=== PATIENT | female | born 1945 | race Caucasian/White ===

== ENCOUNTER 2018-05-18 06:28 | Outpatient (CLI) | payer MEDICARE, OTHER | END 2018-05-18 06:29 | disposition critical access hospital (66) | LOC: EMS 06:28 | PROVIDERS: ATTEND Surgery | DX: R41.82 Altered mental status, unspecified (principal) | CPT/HCPCS: A0425; A0429 ==

== ENCOUNTER 2018-05-18 06:54 | Inpatient (IN) | payer MEDICARE, OTHER ==
--- NOTE | 2018-05-18 07:13 | ED Physician Documentation ---
PD HPI ALTERED MENTAL STATUS - Stated complaint Stated Complaint: AMS - Chief complaint Chief Complaint: Neuro - History obtained from History obtained from: Patient, Family, EMS - History of Present Illness Timing - onset: Yesterday Timing - duration: Days (1) Timing - details: Abrupt onset (Her says she started having feeling of fever chills general myalgias nausea and vomiting yesterday. Developed diarrhea overnight. She has been sleepy and tired. She did have some headache. He took her temperature at 102 last evening. Today she is confused and unable to really interact questions normally. There is no focal weakness. She is still awake with eyes open. She has had poor oral intake since yesterday.) Quality / character: Confused, Agitated Associated symptoms: Fever, Headache, NVD, General weakness. No: Stiff neck, Dyspnea, Cough, Urinary sx, Focal weakness, Seizure activity, Syncope Contributing factors: No: Anticoagulated, Diabetic Basline status: Alert and oriented X 3, Ambulatory Treatment ENVIRONMENTAL STUDIES PROFESSOR: Accucheck Similar symptoms before: Has not had sx before Recently seen: Not recently seen Review of Systems Unable to obtain: AMS, Other (info from who is bedside) Constitutional: reports: Fever (for 1 day), Chills, Myalgias, Fatigue Nose: denies: Rhinorrhea / runny nose, Congestion Throat: denies: Sore throat Respiratory: denies: Cough GI: reports: Abdominal Pain (generally, she did not tell him specific pain), Nausea, Vomiting, Diarrhea. denies: Abdominal Swelling Skin: denies: Rash Neurologic: reports: Generalized weakness, Confused, Altered mental status, Headache. denies: Focal weakness, Numbness, Seizure, Head injury Endocrine: denies: Weight loss, Easy bruising / bleeding Immunocompromised: denies: Immunocompromised PD PAST MEDICAL HISTORY - Past Medical History Cardiovascular: None Respiratory: None Neuro: None Endocrine/Autoimmune: None - Present Medications Home Medications: Ambulatory Orders Medication Instructions Recorded Confirmed Levothyroxine [Synthroid] 1 tab PO DAILY 05/18/18 05/18/18 - Allergies Allergies/Adverse Reactions: Allergies Allergy/AdvReac Type Severity Reaction Status Date / Time No Known Drug Allergies Allergy Verified 05/18/18 08:30 - Living Situation Living Situation: reports: With spouse/s.o. Living Arrangement: reports: At home - Social History Does the pt smoke?: No Does the pt have substance abuse?: No - Family History Family history: reports: Non contributory PD ED PE NORMAL - Vitals Vital signs reviewed: Yes - General General: No acute distress, Well developed/nourished, Other (not answering questions and seems confused. Somewhat fidgety. ) - HEENT HEENT: Ears normal, Pharynx benign. No: Moist mucous membranes - Neck Neck: Supple, no meningeal sign, No adenopathy - Cardiac Cardiac: RRR, No murmur - Respiratory Respiratory: Clear bilaterally - Abdomen Abdomen: Normal bowel sounds, Soft, Non distended, No organomegaly, Other ( seems to grimace with palpation to the upper abdomen. No guarding nor distension. ) - Female Female : Deferred - Rectal Rectal: Deferred - Back Back: No CVA TTP - Derm Derm: Normal color, Warm and dry - Extremities Extremities: No edema, No calf tenderness / cord - Neuro Neuro: No: Alert and oriented X 3 (eyes open and awake, but fidgety and limited following commands. ) Eye Opening: Spontaneous Motor: Localizes to Pain Verbal: Confused GCS Score: 13 - Psych Psych: Normal affect Results - Vitals Vitals: Vital Signs - 24 hr 05/18/18 05/18/18 05/18/18 06:55 08:23 09:24 Temperature 38.4 C H 37.8 C H Heart Rate 85 82 95 Respiratory 17 18 18 Rate Blood Pressure 113/64 115/69 111/91 H O2 Saturation 91 L 97 100 05/18/18 05/18/18 09:51 11:18 Temperature Heart Rate 83 74 Respiratory 22 17 Rate Blood Pressure 129/69 97/49 L O2 Saturation 96 98 Oxygen O2 Source Room air - Labs Labs: Laboratory Tests 05/18/18 05/18/18 05/18/18 08:00 08:00 08:00 WBC 17.0 H RBC 4.77 Hgb 14.1 Hct 42.4 MCV 88.9 MCH 29.7 MCHC 33.4 RDW 13.7 Plt Count 131 MPV 8.1 Neut # (Auto) 16.3 H Lymph # (Auto) 0.3 L [place] # (Auto) 0.3 Eos # (Auto) 0.0 Baso # (Auto) 0.0 Absolute Nucleated RBC 0.01 Nucleated RBC % 0.0 Manual Slide Review Indicated WBC Morphology NORMAL APPEARANCE Platelet Estimate NORMAL (130-450,000) Platelet Morphology NORMAL APPEARANCE RBC Morph Micro Appear NORMAL APPEARANCE Sodium 130 L Potassium 3.4 L Chloride 94 L Carbon Dioxide 24 Anion Gap 12.0 BUN 15 Creatinine 0.8 Estimated GFR (MDRD) 71 L Glucose 150 H POC Whole Bld Glucose Lactic Acid 3.0 H* Calcium 8.5 Magnesium 1.7 Total Bilirubin 1.4 H AST 69 H ALT 24 Alkaline Phosphatase 59 Total Protein 7.8 Albumin 3.8 Globulin 4.0 Albumin/Globulin Ratio 1.0 Lipase 20 L TSH Urine Color Urine Clarity Urine pH Ur Specific [place] Urine Protein Urine Glucose (UA) Urine Ketones Urine Occult Blood Urine Nitrite Urine Bilirubin Urine Urobilinogen Ur Leukocyte Esterase Urine RBC Urine WBC Ur Squamous Epith Cells Amorphous Sediment Urine Bacteria Ur Microscopic Review Urine Culture Comments Influenza A (Rapid) Influenza B (Rapid) 05/18/18 05/18/18 05/18/18 08:00 08:29 08:46 WBC RBC Hgb Hct MCV MCH MCHC RDW Plt Count MPV Neut # (Auto) Lymph # (Auto) [place] # (Auto) Eos # (Auto) Baso # (Auto) Absolute Nucleated RBC Nucleated RBC % Manual Slide Review WBC Morphology Platelet Estimate Platelet Morphology RBC Morph Micro Appear Sodium Potassium Chloride Carbon Dioxide Anion Gap BUN Creatinine Estimated GFR (MDRD) Glucose POC Whole Bld Glucose 170 H Lactic Acid Calcium Magnesium Total Bilirubin AST ALT Alkaline Phosphatase Total Protein Albumin Globulin Albumin/Globulin Ratio Lipase TSH 3.77 Urine Color Urine Clarity Urine pH Ur Specific [place] Urine Protein Urine Glucose (UA) Urine Ketones Urine Occult Blood Urine Nitrite Urine Bilirubin Urine Urobilinogen Ur Leukocyte Esterase Urine RBC Urine WBC Ur Squamous Epith Cells Amorphous Sediment Urine Bacteria Ur Microscopic Review Urine Culture Comments Influenza A (Rapid) Negative Influenza B (Rapid) Negative 05/18/18 09:45 WBC RBC Hgb Hct MCV MCH MCHC RDW Plt Count MPV Neut # (Auto) Lymph # (Auto) [place] # (Auto) Eos # (Auto) Baso # (Auto) Absolute Nucleated RBC Nucleated RBC % Manual Slide Review WBC Morphology Platelet Estimate Platelet Morphology RBC Morph Micro Appear Sodium Potassium Chloride Carbon Dioxide Anion Gap BUN Creatinine Estimated GFR (MDRD) Glucose POC Whole Bld Glucose Lactic Acid Calcium Magnesium Total Bilirubin AST ALT Alkaline Phosphatase Total Protein Albumin Globulin Albumin/Globulin Ratio Lipase TSH Urine Color YELLOW Urine Clarity CLEAR Urine pH 5.5 Ur Specific [place] 1.010 Urine Protein 100 H Urine Glucose (UA) NEGATIVE Urine Ketones TRACE Urine Occult Blood LARGE H Urine Nitrite NEGATIVE Urine Bilirubin NEGATIVE Urine Urobilinogen 0.2 (NORMAL) Ur Leukocyte Esterase NEGATIVE Urine RBC 0-5 Urine WBC 0-3 Ur Squamous Epith Cells MOD Squamous H Amorphous Sediment Moderate Urine Bacteria None Seen Ur Microscopic Review INDICATED Urine Culture Comments NOT INDICATED Influenza A (Rapid) Influenza B (Rapid) - Rads (name of study) head CT Radiology: Prelim report reviewed (no acute process), EMP read contemporaneously abd/pelvic CT Radiology: Prelim report reviewed (inflammation RUQ, with gallstones and wall thickening, some pneumobilia. Some extraluminal air near gastric antrum, consider perforated ulcer. ), Discussed with rads PD MEDICAL DECISION MAKING - ED course Complexity details: reviewed results, considered differential (seems likely sepsis and dehydration. Has vomiting and diarrhea, so may be viral, but will get abd CT to eval for GB/diverticulitis/etc. Can include chest while there as part of looking for infection. Will need to get I/O cath for urine, since not following direction well. Giving 2-3 liters fluid and can give Tylenol for 30/ kg fluid and for temp. ), d/w patient, d/w family, d/w executive search consultant (Dr. Kofi Begum , reviewed clinical picture of sepsis and illness, with CT findings from [facility]. He says to have patient admitted by Hospitalist services. Suggests adding flagyl to the Rocephin/Vanco abx already ordered, and he will consult on patient. Ask for gastrograffin UGI if possible to assess for ulcer/perforation. ), other (Tried to get gastrograffin UGI after discussion with Dr. Maldonado, but patient would not drink the contrast, so could not get study. ) ED course: Discussed with Hospitalist, who will see patient in the ED. - Sepsis Event Vital Signs: Vital Signs - 24 hr 05/18/18 05/18/18 05/18/18 06:55 08:23 09:24 Temperature 38.4 C H 37.8 C H Heart Rate 85 82 95 Respiratory 17 18 18 Rate Blood Pressure 113/64 115/69 111/91 H O2 Saturation 91 L 97 100 05/18/18 05/18/18 09:51 11:18 Temperature Heart Rate 83 74 Respiratory 22 17 Rate Blood Pressure 129/69 97/49 L O2 Saturation 96 98 Oxygen O2 Source Room air Departure - Departure Disposition: 66 [facility] DC/Xfer Clinical Impression: Vomiting and diarrhea, Dehydration, Acute cholecystitis Sepsis Qualifiers: Sepsis type: sepsis due to unspecified organism Qualified Code(s): A41.9 - Sepsis, unspecified organism Condition: Stable Record reviewed to determine appropriate education?: Yes Discharge Date/Time: 05/18/18 13:15
[2018-05-18] MEDS ORDERED: VANCOMYCIN INJ 1 GM in SODIUM CHLORIDE 0.9% 500 ML IV STA (07:33)
[2018-05-18] MEDS ORDERED: cefTRIAXone 1 GM in SODIUM CHLORIDE 0.9% MINIBAG 100 ML IV STA (07:33)
[2018-05-18] MEDS ORDERED: SODIUM CHLORIDE 0.9% 1,000 ML IV ONE (07:33)
[2018-05-18 08:28] LABS: BASOPHILS % (AUTO) 0.1 %; HGB - HEMOGLOBIN 14.1 g/dL (12.0-16.0); LYMPHOCYTES # (AUTO) 0.3 10^3/uL (1.5-3.5); LYMPHOCYTES % (AUTO) 1.8 %; MEAN CORPUSCULAR HEMOGLOBIN 29.7 pg (27.0-31.0); MEAN CORPUSCULAR HGB CONC 33.4 g/dL (32.0-36.0); MEAN CORPUSCULAR VOLUME 88.9 fL (81.0-99.0); MEAN PLATELET VOLUME 8.1 fL (7.9-10.8); MONOCYTES # (AUTO) 0.3 10^3/uL (0.0-1.0); MONOCYTES % (AUTO) 1.8 %; NEUTROPHILS # (AUTO) 16.3 10^3/uL (1.5-6.6); NEUTROPHILS % (AUTO) 96.3 %; PLT - PLATELET COUNT 131 10^3/uL (130-450); RED BLOOD COUNT 4.77 10^6/uL (4.20-5.40); RED CELL DISTRIBUTION WIDTH 13.7 % (12.0-15.0)
[2018-05-18] MEDS: SODIUM CHLORIDE 0.9% 1,000 ML IV ONE ×2 (08:32→09:48)
[2018-05-18 08:34] LABS: ALBUMIN 3.8 g/dL (3.2-5.5); BILIRUBIN,TOTAL 1.4 mg/dL (0.2-1.0); CALCIUM 8.5 mg/dL (8.5-10.3); CREATININE 0.8 mg/dL (0.4-1.0); MAGNESIUM 1.7 mg/dL (1.7-2.8); TOTAL PROTEIN 7.8 g/dL (6.7-8.2)
[2018-05-18 08:45] LABS: PLATELET ESTIMATE, MANUAL NORMAL (130-450,000) (NORMAL); PLATELET MORPHOLOGY NORMAL APPEARANCE (NORMAL); RBC MORPHOLOGY (MULTIPLE) NORMAL APPEARANCE (NORMAL)
[2018-05-18] MEDS ORDERED: ACETAMINOPHEN 1,000 MG/100 ML 100 ML IV STA (08:47)
[2018-05-18] MEDS ORDERED: IOPAMIDOL-300 100 ML VIAL ONE (08:57)
[2018-05-18] MEDS ORDERED: IOPAMIDOL-300 100 ML VIAL IVP ONE (09:27)
--- NOTE | 2018-05-18 09:32 | CT Report ---
Procedure Date: 05/18/2018 Accession Number: [id number] / [id number] Procedure: CT - Head W/O CPT Code: FULL RESULT: EXAM: CT HEAD EXAM DATE: 05/18/2018 09:00 AM. CLINICAL HISTORY: Altered mentation and fever/headache. COMPARISON: None. TECHNIQUE: Multiaxial CT images were obtained from the foramen magnum to the vertex. Reformats: Coronal. IV contrast: None. In accordance with CT protocol optimization, one or more of the following dose reduction techniques were utilized for this exam: automated exposure control, adjustment of mA and/or KV based on patient size, or use of iterative reconstructive technique. FINDINGS: Parenchyma: No intraparenchymal hemorrhage. No evidence of mass, midline shift, or CT findings of acute infarction. Frankel-white differentiation is distinct. Extraaxial Spaces: Normal for age. No subdural or epidural collections identified. Ventricles: The ventricles and cortical sulci are mildly enlarged, consistent with age-related tissue loss. Sinuses and orbits: Imaged paranasal sinuses, orbits, and mastoids show no significant abnormality. Bones: No evidence of fracture or calvarial defect. Other: None. IMPRESSION: Generalized mild age-related cortical atrophic changes without evidence of acute intracranial abnormality. [facility]
[2018-05-18 09:58] LABS: BILIRUBIN,URINE NEGATIVE (NEGATIVE); GLUCOSE, URINE (UA) NEGATIVE (NEGATIVE); KETONES,URINE (UA) TRACE mg/dL (NEGATIVE); LEUKOCYTE ESTERASE, URINE NEGATIVE (NEGATIVE); NITRITE,URINE NEGATIVE (NEGATIVE); OCCULT BLOOD,URINE LARGE (NEGATIVE); PH,URINE 5.5 PH (5.0-7.5); PROTEIN,URINE 100 mg/dL (NEGATIVE); UROBILINOGEN,URINE 0.2 (NORMAL) E.U./dL (NORMAL)
[2018-05-18 10:00] LABS: CLARITY,URINE CLEAR (CLEAR)
--- NOTE | 2018-05-18 10:14 | CT Report ---
Procedure Date: 05/18/2018 Accession Number: [id number] / [id number] Procedure: CT - Chest W/ CPT Code: FULL RESULT: EXAM: CT CHEST EXAM DATE: 05/18/2018 09:23 AM. CLINICAL HISTORY: Altered mentation. Vomiting, diarrhea and sepsis. COMPARISONS: None. TECHNIQUE: Routine helical CT imaging was performed through the chest. IV contrast: 100 cc Isovue 300. Reconstructions: Coronal and sagittal. In accordance with CT protocol optimization, one or more of the following dose reduction techniques were utilized for this exam: automated exposure control, adjustment of mA and/or KV based on patient size, or use of iterative reconstructive technique. FINDINGS: Lungs/Pleura: No nodules, bronchial thickening, consolidation, or edema. Pulmonary vasculature is normal. No pericardial or pleural effusion. No pneumothorax. Mediastinum: Cardiomegaly. Surgical clips are probably from prior thyroid resection. Small hiatal hernia. Bones: Prior sternotomy. Visualized Abdomen: Unremarkable. Other: None. IMPRESSION: 1. Cardiomegaly. 2. No consolidation. [facility]
[2018-05-18 10:18] LABS: AMORPHOUS SEDIMENT,UR Moderate /LPF; BACTERIA,URINE None Seen /HPF (None Seen); RBC,URINE 0-5 /HPF (0-5); SQUAMOUS EPITHELIAL CELL,UR MOD Squamous (<= Few)
--- NOTE | 2018-05-18 10:29 | CT Report ---
Procedure Date: 05/18/2018 Accession Number: [id number] / [id number] Procedure: CT - Abdomen/Pelvis W/ CPT Code: FULL RESULT: EXAM: CT ABDOMEN AND PELVIS EXAM DATE: 05/18/2018 09:09 AM. CLINICAL HISTORY: Vomiting, diarrhea and sepsis. COMPARISONS: None. TECHNIQUE: Routine helical CT imaging was performed through the abdomen and pelvis. IV contrast: 100 cc Isovue-300. Enteric contrast: No. Reconstructions: Coronal and sagittal. In accordance with CT protocol optimization, one or more of the following dose reduction techniques were utilized for this exam: automated exposure control, adjustment of mA and/or KV based on patient size, or use of iterative reconstructive technique. FINDINGS: Lung Bases: Small hiatal hernia. Cardiomegaly. Prior sternotomy. Liver: Trace pneumobilia. Gallbladder/Bile Ducts: Filling defects compatible with gallstones. Gallbladder wall thickening. Concern for extraluminal contained air collection measuring 4.4 cm transverse by 1.9 cm AP by 3 cm craniocaudal on axial image 28, sagittal image 40 anterior to gastroduodenal artery and cephalad to gastric antrum. Spleen: 2.4 x 2.4 x 1.6 cm triangular hypodensity along posterior spleen on axial image 18, sagittal image 19 worrisome for infarct. Smaller hypodensity along the hilum. Pancreas: Normal. Adrenal Glands: Normal. Kidneys: Normal. No masses or hydronephrosis. Peritoneal Cavity/Bowel: Diverticulosis without focal inflammation. No dilated bowel. Ascending colon is collapsed limiting evaluation. Candidate for normal appendix is noted medial to cecum. Please see axial image 60. Pelvic Organs: Normally positioned IUD. Bladder was mostly collapsed. Vasculature: No aneurysms or other significant abnormality. Bones: Lumbar spine degenerative changes. Other: None. IMPRESSION: 1. Significant right upper quadrant inflammatory process with concern for focal/contained extraluminal air anterior to gastroduodenal artery and cephalad to gastric antrum. Findings could be related to perforated gastric antral ulcer or malignancy versus cholecystitis. Potential small 2.4 cm rim-enhancing abscess on axial image 33. Gallbladder contains multiple stones and diffuse wall thickening. Trace pneumobilia. 2. 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 3. Diverticulosis without evidence for diverticulitis. 4. Appendix is likely normal. CRITICAL RESULT: The findings were discussed with Dr. Du on 05/18/2018 at 10:19 AM. [facility]
[2018-05-18] MEDS ORDERED: metroNIDAZOLE 500 MG/100 ML 500 MG/100 ML BAG IV ONE (10:35)
[2018-05-18] MEDS ORDERED: LORazepam 2 MG/ML VIAL IVP STA (10:36)
[2018-05-18] MEDS ORDERED: SODIUM CHLORIDE FLUSH 0.9% 10 ML SYRINGE IVP PRN ×2 (11:36→14:52)
[2018-05-18] MEDS ORDERED: ACETAMINOPHEN 325 MG TABLET PO PRN (11:36)
[2018-05-18] MEDS ORDERED: MORPHINE 2 MG/ML SYRINGE IVP PRN (11:36)
[2018-05-18] MEDS ORDERED: ONDANSETRON 4 MG/2 ML VIAL IVP PRN (11:36)
--- NOTE | 2018-05-18 12:41 | HISTORY & PHYSICAL EXAMINATION ---
Chief Complaint - Chief Complaint Chief Complaint: nausea, vomiting and confused History of Present Illness - Admitted From Admitted From:: ER - History Obtained From History obtained from: pt's - History of Present Illness HPI Comment/Other: Ms. Vázquez is 73-yrs-old female with a PMH significant for hypothyroidism, who present ER for fever, nausea, vomiting and confusion. I was asked to admit pt by Dr. Swartz. Pt is still confusion when I interview pt. Pt's is at the bedside. The report pt yesterday suddenly developed nausea, vomiting, diarrhea, at fever at 102. pt also complained headache. Pt did not complain much abdominal pain per her 's report. Then pt also developed confused. Today pt is unable to answer questions normally. CT of head and chest reveals no acute findings. CT of abdomen reveals significant right quadrant inflammatory process with concern for focal/contained extraluminal air anterior to gastroduodernal artery and cephalad to gastric antrum. Findings could be related to perforated gastric antral ulcer or malignancy versus cholecystitis, could have Potential small 2.4 cm rim-enhancing abscess. Pt is febrile at 38.4, HR 85, BP 113/64, RR 17, 91% Sats on room air in the ER today. Pt has WBC at 17 , and lactic acid 3 at this point. History - Past Medical History Cardiovascular: reports: None Respiratory: reports: None Neuro: reports: None Endocrine/Autoimmune: reports: None - Family & Social History Family History: Mother: , CAD, Father: , Cancer Family History Comment/Other: pt is living [place] with her , they was for 58yrs. They had two children. Living arrangement: At home Living Situation: With spouse/s.o. - Substance History Use: Uses substance without health or social issues: NONE Abuse: Recurrent use of substance despite neg consequences: NONE - POLST POLST Status: Full Code Meds/Allgy - Home Medications Home Medications: Ambulatory Orders Medication Instructions Recorded Confirmed Levothyroxine [Synthroid] 1 tab PO DAILY 05/18/18 05/18/18 - Allergies Allergies/Adverse Reactions: Allergies Allergy/AdvReac Type Severity Reaction Status Date / Time No Known Drug Allergies Allergy Verified 05/18/18 08:30 Review of Systems - Constitutional Constitutional: reports: Fatigue, Fever, Chills, Weakness, Poor appetite. denies: Malaise - Eyes Eyes: denies: Pain, Vision loss - Ears, Nose & Throat Ears, Nose & Throat: denies: Ear pain, Hearing loss, Nosebleeds, Nasal congestion, Sore throat, Bleeding gums - Cardiovascular Cariovascular: denies: Chest pain, Lightheadedness, Syncope, Exertional dyspnea , Decr. exercise tolerance - Respiratory Respiratory: denies: Cough, Sputum production, Hemoptysis, Orthopnea, SOB at rest - Gastrointestinal Gastrointestinal: reports: Abdominal pain, Diarrhea, Nausea, Vomiting. denies: Constipation, Change in bowel habits, Rectal bleeding, Black stools, Bloody stools, Yevgeniy blood emesis - Genitourinary Genitourinary: denies: Dysuria - Musculoskeletal Musculoskeletal: denies: Muscle pain, Muscle aches, Limited range of motion - Integumentary Integumentary: denies: Lesions, Dryness - Neurological Neurological: reports: Headache. denies: General weakness, Focal weakness, Dizziness, Numbness, Seizures, Incoordination, Slurred speech - Psychiatric Psychiatric: denies: Suicidal, Hallucinations, Homicidal - Endocrine Endocrine: denies: Polyuria - Hematologic/Lymphatic Hematologic/Lymphatic: denies: Petechiae, Bleeding tendencies Exam - Vital Signs Reviewed Vital Signs: Yes Vital Signs: Vital Signs x48h Temp Pulse Resp BP Pulse Ox 05/18/18 11:18 74 17 97/49 L 98 05/18/18 09:51 83 22 129/69 96 05/18/18 09:24 95 18 111/91 H 100 05/18/18 08:23 37.8 C H 82 18 115/69 97 05/18/18 06:55 38.4 C H 85 17 113/64 91 L - Physical Exam General Appearance: positive: Alert, Mild distress. negative: Lethargic Eyes Bilateral: positive: Normal inspection, PERRL. negative: No lid inflammation, Conjunctivae nml ENT: positive: ENT inspection nml, Pharynx nml, No signs of dehydration. negative: Purulent nasal drainage, Pharyngeal erythema, Oral lesions Neck: positive: Nml inspection, Thyroid nml, No JVD, Trachea midline. negative : Thyromegaly, Lymphadenopathy (R), Lymphadenopathy (L), Stiff neck, Swelling/ bruising, Tracheal deviation Respiratory: positive: Chest non-tender, No respiratory distress, Breath sounds nml. negative: Wheezes, Rales, Rhonchi Cardiovascular: positive: Regular rate & rhythm, No murmur, No gallop. negative : Irregularly irregular, Extrasystoles, Tachycardia, Bradycardia, JVD present, Systolic murmur, Diastolic murmur Peripheral Pulses: positive: 2+ Abdomen: positive: No organomegaly, No distention, Tenderness, Abnml bowel sounds, Other (hyperactive bowel sound). negative: Guarding, Rebound Back: positive: Nml inspection. negative: CVA tenderness (R), CVA tenderness (L ) Skin: positive: Color nml, No rash, Warm, Dry. negative: Cyanosis, Diaphoresis , Pallor Extremities: positive: Non-tender, Full ROM, Nml appearance. negative: Calf tenderness, Joint swelling, Annalise's sign/cords Neurologic/Psychiatric: positive: Motor nml, Sensation nml. negative: Weakness , Sensory loss, Facial droop, Slurred/abnml speech, Depressed mood/affect Conclusion/Plan - Problem List (1) Sepsis Conclusion/Plan: pt has elevated WBC, fever, and elevated lactic acid. HR and BP is normal now. Pt already had two liter of NS in ER Zosyn IV IVF, bolus of NS as needed pt will be transferred to ICU and other facility follow up Sepsis protocol (2) Perforated bowel Conclusion/Plan: consult with surgeon pt need immediate medical attention, on ICU and meanwhile transfer to other facility for immediate intervention. continue IV Zosyn pain control (3) Hypothyroidism Conclusion/Plan: resume home meds, and check TSH. (4) DVT prophylaxis Conclusion/Plan: SCD and Lovenox (5) Full code status Conclusion/Plan: full code status per pt's - Lab Results Fish Bones: 05/18/18 08:00 05/18/18 08:00 Core Measures - Anticipated LOS I expect patient to be DC'd or transferred within 96 hours.: Yes - DVT/VTE - Prophylaxis VTE/DVT Device ordered at admit?: Yes VTE/DVT Prophylaxis med ordered at admit?: Yes
[2018-05-18] MEDS ORDERED: LORazepam 2 MG/ML VIAL IVP PRN (13:21)
[2018-05-18] MEDS ORDERED: SODIUM CHLORIDE 0.9% 1,000 ML IV SCH (14:00)
[2018-05-18] MEDS ORDERED: PIPERACILLIN/TAZOBACTAM 4.5 GM in SODIUM CHLORIDE 0.9% MINIBAG 100 ML IV ONE (14:30)
[2018-05-18] MEDS ORDERED: HYDROmorphone 1 MG/ML CARPUJECT IVP PRN (14:52)
--- NOTE | 2018-05-18 14:52 | CONSULTATION NOTE ---
Referring Provider Name of Referring Provider:: Dr. Kunal Du Consult Date: 05/18/18 Chief Complaint - Chief Complaint Chief Complaint: V/D/AMS History of Present Illness - Admitted From Admitted From:: ER - History Obtained From Records Reviewed: yes History obtained from: pt, Exam Limitations: pt confused, disoriented - History of Present Illness HPI Comment/Other: 73 yo female with 24 hour hx of vomiting, diarrhea, fever, and confusion. No hx hematemesis, melena, hematochezia, hepatitis, prior similar sx. No recent wt loss, neg FH GI tumors, no use of NSAIDs, no hx food intolerance. She has a hx of obstructive jaundice due to choledocholithiasis 2 yrs ago treated at with ERCP, sphincterotomy and stone extraction. She still has her gallbladder. No hx PUD; alcohol intake is 2 drinks/day. Pt denies abdominal pain, but is obviously confused and lethargic. History - Past Medical History Cardiovascular: reports: Valve disorder (s/p porcine AVR) Respiratory: reports: None Neuro: reports: None Endocrine/Autoimmune: reports: HyPOthyroidism (s/p thyroidectomy) GI: reports: Cholelithiasis (s/p ERCP with stone extraction for choledocholithiasis at hospital approx 2 yrs ago.) : reports: None Musculoskeletal: reports: Fatigue Derm: reports: Other MRSA Hx?: No - Past Surgical History General: reports: Other (ERCP) Cardiovascular: reports: Valve replacement (porcine AVR) - Family & Social History Family History Comment/Other: neg for GI tumors Living arrangement: At home Living Situation: With spouse/s.o. - Substance History Use: Uses substance without health or social issues: Alcohol (2 drinks/day) - POLST Patient has POLST: No POLST Status: Full Code Meds/Allgy - Home Medications Home Medications: Ambulatory Orders Medication Instructions Recorded Confirmed Levothyroxine [Synthroid] 1 tab PO DAILY 05/18/18 05/18/18 - Allergies Allergies/Adverse Reactions: Allergies Allergy/AdvReac Type Severity Reaction Status Date / Time No Known Drug Allergies Allergy Verified 05/18/18 08:30 Review of Systems - Constitutional Constitutional: reports: Fever, Chills. denies: Weight gain, Weight loss - Cardiovascular Cariovascular: denies: Chest pain - Respiratory Respiratory: denies: Cough - Gastrointestinal Gastrointestinal: reports: Diarrhea, Change in bowel habits, Nausea, Vomiting. denies: Abdominal pain, Abdominal distention, Black stools, Bloody stools, Yevgeniy blood emesis, Coffee grounds emesis, Reflux/heartburn - Neurological Neurological: reports: Other (confused, lethargic) - Hematologic/Lymphatic Hematologic/Lymphatic: denies: Blood clots Exam - Vital Signs Reviewed Vital Signs: Yes Vital Signs: Vital Signs x48h Temp Pulse Pulse Resp BP BP Pulse Ox 05/18/18 13:41 36.3 C L 62 20 90/57 L 90 L 05/18/18 13:00 66 16 119/80 97 - Physical Exam General Appearance: positive: Lethargic Eyes Bilateral: positive: No scleral icterus ENT: positive: Dry mucous membranes Neck: positive: Nml inspection, No JVD. negative: Lymphadenopathy (R), Lymphadenopathy (L) Respiratory: positive: Chest non-tender, No respiratory distress, Breath sounds nml. negative: Wheezes, Rales, Rhonchi Cardiovascular: positive: Regular rate & rhythm, No murmur, No gallop Abdomen: positive: No distention, Tenderness (mild RUQ and epigastric tenderness ; no peritoneal signs; neg Tapia's sign), Abnml bowel sounds (hypoactive). negative: Guarding, Rebound, Hepatomegaly, Splenomegaly, Mass Skin: positive: Color nml, Warm, Dry Extremities: positive: Non-tender, No pedal edema. negative: Calf tenderness Neurologic/Psychiatric: positive: Other (confused, agitated, has difficulty following commands) Conclusion/Plan - Diagnosis Diagnosis: Intra abdominal sepsis, with evolving septic shock. DDX includes perforated, gangrenous cholecystitis, perforated gastric ulcer, doubt diverticulititis. Presence of possible splenic infarcts of unclear significance. - Plan Plan: Pt should be transferred to the ICU, and continue to be treated for sepsis and septic shock, along with arrangements made for transfer to secondary or tertiary care facility where critical care services and ancillary services such as GI and IR are available. She does not appear at this time to be a suitable candidate for care at a critical access hospital. Discussed with hospitalists and pt's . - Lab Results Fish Bones: 05/18/18 08:00 05/18/18 08:00 Other Lab Results: lactic acid 3.0, dropping to 1.4 after fluid boluses and IV antibiotics; TSH nl - Diagnostic Imaging Results Diagnostic Imaging Results: positive: Final report reviewed, Critical result, Read independently Diagnostic Imaging Results Comments: CT chest, head essentially neg. CT abd/pelvis: abnormally thickened gallbladder with stones, no dilated bile ducts noted, phlegmonous changes in RIUQ; fluid collections/free air in upper abdomen; pneumobilia, possible splenic infarcts x 2. - EKG Results EKG Interpreted Independently: No EKG Findings: atrial bigeminy, LBBB, VR 106
[2018-05-18] MEDS ORDERED: D5.45NS W/20 MEQ KCL 1,000 ML IV SCH (15:00)
--- NOTE | 2018-05-18 15:00 | XRAY Report ---
Procedure Date: 05/18/2018 Accession Number: [id number] / [id number] Procedure: XR - Abdomen 1 View X-Ray CPT Code: 66724 FULL RESULT: EXAM: ABDOMEN RADIOGRAPHY EXAM DATE: 05/18/2018 12:01 PM. CLINICAL HISTORY: Abdominal pain and vomiting. COMPARISON: ABDOMEN/PELVIS W/ 05/18/2018. TECHNIQUE: 3 view. FINDINGS: Bowel Gas Pattern: Within normal limits. No dilated loops. Other: Excreted contrast is seen in the bilateral renal collecting systems, ureters and bladder. No evidence of hydronephrosis or ureteral dilatation. Intrauterine device seen in the pelvis. IMPRESSION: 1. Nonobstructive bowel gas pattern. 2. Excreted IV contrast seen in the renal collecting systems, ureters and bladder with no evidence of obstruction. RADIA
[2018-05-18] MEDS ORDERED: POTASSIUM CHLORIDE 20 MEQ TABLET PO ONE (15:15)
[2018-05-18] MEDS ORDERED: PANTOPRAZOLE 40 MG VIAL IVP SCH (16:00)
--- NOTE | 2018-05-18 16:23 | Discharge Plan ---
Discharge Plan Disposition: 02 Transfer Acute Care Hosp Condition: Serious Activity Restrictions: bedrest Shower Restrictions: No Driving Restrictions: No Weight Bearing: No Weight No Smoking: If you smoke, Please STOP! Call for help.
--- NOTE | 2018-05-18 16:27 | DISCHARGE SUMMARY ---
"Discharge Summary Admit Date: 05/18/18 Discharge Date: 05/18/18 Discharging Provider: Scarlet Swartz DO Primary Care Provider: No known Code Status: Attempt Resuscitation Condition at Discharge: Serious Discharge Disposition: 02 Transfer Acute Care Hosp - DIAGNOSES Admission Diagnoses: 1. Perforated bowel 2. Sepsis 3. Hypothyroidism 4. DVT prophylaxis 5. Full code status Discharge Diagnoses with Status of Each Condition: 1. Perforated bowel- The patient is being transferred to [facility] in [place] for further workup/surgery. 2. Sepsis- The patient's lactic acid level has gone from 3.0 down to 1.4 over the course of the couple of hours. She is hypotensive but is receiving fluids to correct this and she is also confused. Continue present care including antibiotics ( ceftriaxone, vancomycin, and Unasyn). 3. Hypothyroidism- The patient's TSH level is 3.77. Continue current dosing. 4. DVT prophylaxis- The patient has been placed on SCDs and has Lovenox being given. 5. Full code status- Per the patient's . - HPI History of Present Illness: From [facility]: Ms. Vázquez is 73-yrs-old female with a PMH significant for hypothyroidism, who present ER for fever, nausea, vomiting and confusion. I was asked to admit pt by Dr. Swartz. Pt is still confusion when I interview pt. Pt's is at the bedside. The report pt yesterday suddenly developed nausea, vomiting, diarrhea, at fever at 102. pt also complained headache. Pt did not complain much abdominal pain per her 's report. Then pt also developed confused. Today pt is unable to answer questions normally. CT of head and chest reveals no acute findings. CT of abdomen reveals significant right quadrant inflammatory process with concern for focal/contained extraluminal air anterior to gastroduodernal artery and cephalad to gastric antrum. Findings could be related to perforated gastric antral ulcer or malignancy versus cholecystitis, could have Potential small 2.4 cm rim-enhancing abscess. Pt is febrile at 38.4, HR 85, BP 113/64, RR 17, 91% Sats on room air in the ER today. Pt has WBC at 17 , and lactic acid 3 at this point. - CONSULTS | PROCEDURES Consultations: Dr. Logan Begum was consulted, recommends transfer - HOSPITAL COURSE Hospital Course: The patient was seen in the emergency department it was felt to be very ill. Apparently there was some miscommunication between the emergency department physicians and Dr. Begum, surgeon, who thought that the patient should be transferred out. The ED physician however thought that Dr. Begum wanted the hospitalist team to admit the patient. Once this mistake was discovered steps were immediately made to start transferring the patient to [facility] in [place]. - ALLERGIES Allergies/Adverse Reactions: Allergies Allergy/AdvReac Type Severity Reaction Status Date / Time No Known Drug Allergies Allergy Verified 05/18/18 08:30 - MEDICATIONS Home Medications: Ambulatory Orders Medication Instructions Recorded Confirmed Enoxaparin [Lovenox] 40 mg SUBQ DAILY syringe 05/18/18 Levothyroxine [Synthroid] 1 tab PO DAILY 05/18/18 05/18/18 - PHYSICAL EXAM AT DISCHARGE General Appearance: positive: No acute distress, Lethargic Eyes Bilateral: positive: Normal inspection, PERRL, EOMI, No lid inflammation, Conjunctivae nml, No scleral icterus ENT: positive: ENT inspection nml, Pharynx nml, No signs of dehydration Neck: positive: Nml inspection, Thyroid nml, No JVD, Trachea midline. negative : Thyromegaly Respiratory: positive: Chest non-tender, No respiratory distress, Breath sounds nml. negative: Wheezes, Rales, Rhonchi Cardiovascular: positive: Regular rate & rhythm, No murmur, No gallop Peripheral Pulses: positive: 1+ Abdomen: positive: Guarding, Other (hypoactive bowel sounds). negative: Hepatomegaly, Splenomegaly, Mass Back: positive: Nml inspection. negative: CVA tenderness (R), CVA tenderness (L ) Skin: positive: Color nml, No rash, Warm, Dry. negative: Cyanosis Extremities: positive: Non-tender, Full ROM, Nml appearance, No pedal edema Neurologic/Psychiatric: positive: CN's nml (2-12), Motor nml, Sensation nml, Other (lethargic, confused) - LABS Result Diagrams: 05/18/18 08:00 05/18/18 08:00 - DIAGNOSTIC IMAGING Diagnostic Imaging Results: Final report reviewed Diagnostic Imaging Results Comments: EXAM: CT HEAD EXAM DATE: 05/18/2018 09:00 AM. CLINICAL HISTORY: Altered mentation and fever/headache. COMPARISON: None. TECHNIQUE: Multiaxial CT images were obtained from the foramen magnum to the vertex. Reformats: Coronal. IV contrast: None. In accordance with CT protocol optimization, one or more of the following dose reduction techniques were utilized for this exam: automated exposure control, adjustment of mA and/or KV based on patient size, or use of iterative reconstructive technique. FINDINGS: Parenchyma: No intraparenchymal hemorrhage. No evidence of mass, midline shift, or CT findings of acute infarction. Frankel-white differentiation is distinct. Extraaxial Spaces: Normal for age. No subdural or epidural collections identified. Ventricles: The ventricles and cortical sulci are mildly enlarged, consistent with age-related tissue loss. Sinuses and orbits: Imaged paranasal sinuses, orbits, and mastoids show no significant abnormality. Bones: No evidence of fracture or calvarial defect. Other: None. IMPRESSION: Generalized mild age-related cortical atrophic changes without evidence of acute intracranial abnormality. EXAM: CT ABDOMEN AND PELVIS EXAM DATE: 05/18/2018 09:09 AM. CLINICAL HISTORY: Vomiting, diarrhea and sepsis. COMPARISONS: None. TECHNIQUE: Routine helical CT imaging was performed through the abdomen and pelvis. IV contrast: 100 cc Isovue-300. Enteric contrast: No. Reconstructions: Coronal and sagittal. In accordance with CT protocol optimization, one or more of the following dose reduction techniques were utilized for this exam: automated exposure control, adjustment of mA and/or KV based on patient size, or use of iterative reconstructive technique. FINDINGS: Lung Bases: Small hiatal hernia. Cardiomegaly. Prior sternotomy. Liver: Trace pneumobilia. Gallbladder/Bile Ducts: Filling defects compatible with gallstones. Gallbladder wall thickening. Concern for extraluminal contained air collection measuring 4.4 cm transverse by 1.9 cm AP by 3 cm craniocaudal on axial image 28, sagittal image 40 anterior to gastroduodenal artery and cephalad to gastric antrum. Spleen: 2.4 x 2.4 x 1.6 cm triangular hypodensity along posterior spleen on axial image 18, sagittal image 19 worrisome for infarct. Smaller hypodensity along the hilum. Pancreas: Normal. Adrenal Glands: Normal. Kidneys: Normal. No masses or hydronephrosis. Peritoneal Cavity/Bowel: Diverticulosis without focal inflammation. No dilated bowel. Ascending colon is collapsed limiting evaluation. Candidate for normal appendix is noted medial to cecum. Please see axial image 60. Pelvic Organs: Normally positioned IUD. Bladder was mostly collapsed. Vasculature: No aneurysms or other significant abnormality. Bones: Lumbar spine degenerative changes. Other: None. IMPRESSION: 1. Significant right upper quadrant inflammatory process with concern for focal/contained extraluminal air anterior to gastroduodenal artery and cephalad to gastric antrum. Findings could be related to perforated gastric antral ulcer or malignancy versus cholecystitis. Potential small 2.4 cm rim-enhancing abscess on axial image 33. Gallbladder contains multiple stones and diffuse wall thickening. Trace pneumobilia. 2. 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 3. Diverticulosis without evidence for diverticulitis. 4. Appendix is likely normal. EXAM: CT CHEST EXAM DATE: 05/18/2018 09:23 AM. CLINICAL HISTORY: Altered mentation. Vomiting, diarrhea and sepsis. COMPARISONS: None. TECHNIQUE: Routine helical CT imaging was performed through the chest. IV contrast: 100 cc Isovue 300. Reconstructions: Coronal and sagittal. In accordance with CT protocol optimization, one or more of the following dose reduction techniques were utilized for this exam: automated exposure control, adjustment of mA and/or KV based on patient size, or use of iterative reconstructive technique. FINDINGS: Lungs/Pleura: No nodules, bronchial thickening, consolidation, or edema. Pulmonary vasculature is normal. No pericardial or pleural effusion. No pneumothorax. Mediastinum: Cardiomegaly. Surgical clips are probably from prior thyroid resection. Small hiatal hernia. Bones: Prior sternotomy. Visualized Abdomen: Unremarkable. Other: None. IMPRESSION: 1. Cardiomegaly. 2. No consolidation. EXAM: ABDOMEN RADIOGRAPHY EXAM DATE: 05/18/2018 12:01 PM. CLINICAL HISTORY: Abdominal pain and vomiting. COMPARISON: ABDOMEN/PELVIS W/ 05/18/2018. TECHNIQUE: 3 view. FINDINGS: Bowel Gas Pattern: Within normal limits. No dilated loops. Other: Excreted contrast is seen in the bilateral renal collecting systems, ureters and bladder. No evidence of hydronephrosis or ureteral dilatation. Intrauterine device seen in the pelvis. IMPRESSION: 1. Nonobstructive bowel gas pattern. 2. Excreted IV contrast seen in the renal collecting systems, ureters and bladder with no evidence of obstruction. - FOLLOW UP Follow Up: Follow-up with your primary care physician following discharge from [facility] - TIME SPENT Time Spent in Discharge (Minutes): 55"
[2018-05-18 16:57] VITALS: BP 102/76
[2018-05-18] MEDS ORDERED: SODIUM CHLORIDE FLUSH 0.9% 10 ML SYRINGE IVP SCH ×2 (17:00)
[2018-05-18] MEDS ORDERED: PIPERACILLIN/TAZOBACTAM 3.375 GM in SODIUM CHLORIDE 0.9% MINIBAG 100 ML IV SCH (18:00)
[2018-05-19] MEDS ORDERED: LEVOTHYROXINE 125 MCG TABLET PO SCH (07:00)
[2018-05-19] MEDS ORDERED: POLYETHYLENE GLYCOL 3350 17 GM PACKET PO SCH (09:00)
[2018-05-19] MEDS ORDERED: ENOXAPARIN 40 MG/0.4 ML SYRINGE SUBQ SCH (09:00)
== END 2018-05-18 17:17 | disposition short-term general hospital (02) | DRG 871 ==
LOC: ED 06:54 → EDBD 06:54 → MS2 11:36
PROVIDERS: ADMIT Nurse Practitioner Gerontology; ATTEND Nurse Practitioner Gerontology
DX: K80.10 Calculus of gallbladder with chronic cholecystitis without obstruction (principal); A41.9 Sepsis, unspecified organism; R11.2 Nausea with vomiting, unspecified; E86.0 Dehydration; K25.5 Chronic or unspecified gastric ulcer with perforation; K63.1 Perforation of intestine (nontraumatic); K65.1 Peritoneal abscess; K80.00 Calculus of gallbladder with acute cholecystitis without obstruction; D49.89 Neoplasm of unspecified behavior of other specified sites; E03.9 Hypothyroidism, unspecified; Z95.3 Presence of xenogenic heart valve
CPT/HCPCS: 36415; 51701; 70450; 71260; 74018; 74177; 80053; 81001; 81003; 83605; 83690; 83735; 84443; 85025; 87040; 87077; 87086; 87181; 87275; 87276; 93005; 96361; 96365; 96375; 99284; 99285

== ENCOUNTER 2018-06-06 08:00 | Outpatient (CLI) | payer MEDICARE, OTHER ==
[2018-06-06 17:46] LABS: BASOPHILS # (AUTO) 0.1 10^3/uL (0.0-0.1); BASOPHILS % (AUTO) 0.9 %; EOSINOPHILS % (AUTO) 0.3 %; HGB - HEMOGLOBIN 11.1 g/dL (12.0-16.0); LYMPHOCYTES # (AUTO) 0.9 10^3/uL (1.5-3.5); LYMPHOCYTES % (AUTO) 9.2 %; MEAN CORPUSCULAR HEMOGLOBIN 28.6 pg (27.0-31.0); MEAN CORPUSCULAR HGB CONC 32.2 g/dL (32.0-36.0); MEAN CORPUSCULAR VOLUME 88.7 fL (81.0-99.0); MEAN PLATELET VOLUME 7.4 fL (7.9-10.8); MONOCYTES # (AUTO) 1.2 10^3/uL (0.0-1.0); MONOCYTES % (AUTO) 12.3 %; NEUTROPHILS # (AUTO) 7.5 10^3/uL (1.5-6.6); NEUTROPHILS % (AUTO) 77.3 %; PLT - PLATELET COUNT 601 10^3/uL (130-450); RED CELL DISTRIBUTION WIDTH 13.9 % (12.0-15.0); WHITE BLOOD COUNT 9.7 x10^3/uL (4.8-10.8)
[2018-06-06 17:55] LABS: ALBUMIN 3.3 g/dL (3.2-5.5); ALBUMIN/GLOBULIN RATIO 0.6 (1.0-2.2); BILIRUBIN,TOTAL 0.6 mg/dL (0.2-1.0); CREATININE 0.8 mg/dL (0.4-1.0); TOTAL PROTEIN 9.1 g/dL (6.7-8.2)
[2018-06-06 18:09] LABS: THYROID STIMULATING HORMONE 1.5 uIU/mL (0.34-5.60)
[2018-06-06 18:15] LABS: FERRITIN 239.2 ng/mL (11.0-306.8)
== END 2018-06-06 08:01 | disposition home or self-care (01) ==
LOC: LAB.F 08:00
PROVIDERS: ATTEND Naturopath
DX: A41.9 Sepsis, unspecified organism (principal); I21.3 ST elevation (STEMI) myocardial infarction of unspecified site; E03.9 Hypothyroidism, unspecified; E61.1 Iron deficiency
CPT/HCPCS: 36415; 80053; 82728; 84443; 85025

== ENCOUNTER 2018-06-22 00:37 | Outpatient (CLI) | payer MEDICARE, OTHER | END 2018-06-22 00:38 | disposition short-term general hospital (02) | LOC: EMS 00:37 | PROVIDERS: ATTEND Surgery | DX: R07.89 Other chest pain (principal) | CPT/HCPCS: A0425; A0427 ==

== ENCOUNTER 2018-07-03 09:22 | Outpatient (CLI) | payer MEDICARE, OTHER ==
[2018-07-03 18:41] LABS: CHOL/HDL RATIO 2.9 (<4.4); CHOLESTEROL 191 mg/dL; HDL CHOLESTEROL 67 mg/dL; LDL CHOLESTEROL,CALCULATED 106 mg/dL; LDL/HDL RATIO 1.6 (<4.4); VLDL CHOLESTEROL 18 mg/dL
== END 2018-07-03 09:23 | disposition home or self-care (01) ==
LOC: LAB.F 09:22
PROVIDERS: ATTEND Internal Medicine Cardiovascular Disease
DX: E78.2 Mixed hyperlipidemia (principal)
CPT/HCPCS: 36415; 80061; 83721

== ENCOUNTER 2018-08-16 17:04 | Outpatient (CLI) | payer MEDICARE, OTHER ==
--- NOTE | 2018-08-16 18:17 | Ultrasound Report ---
Reason: R LE EDEMA Procedure Date: 08/16/2018 Accession Number: [id number] / [id number] Procedure: US - Duplex Ext Veins Right CPT Code: FULL RESULT: EXAM: RIGHT LOWER EXTREMITY VENOUS ULTRASOUND EXAM DATE: 08/16/2018 06:03 PM. CLINICAL HISTORY: Right lower extremity edema COMPARISON: None. TECHNIQUE: Real-time sonographic vascular imaging was performed by the manager spring through the lower extremity utilizing both color-flow and Doppler spectral analysis. Multiple senior human resources representative static images were saved for review. FINDINGS: Common Femoral Vein (CFV): Normal. CFV-GSV Junction: Normal. Profunda Femoral Vein (PFV): Normal. Femoral Vein (FV) Prox: Normal. Femoral Vein (FV) Mid: Normal. Femoral Vein (FV) Dist: Normal. Popliteal Vein: Normal. Posterior Tibial Veins: Normal. Peroneal Veins: Normal. Contralateral Side CFV: Normal. IMPRESSION: No evidence for deep venous thrombosis. RADIA
== END 2018-08-16 17:05 | disposition home or self-care (01) ==
LOC: DI 17:04
PROVIDERS: ATTEND Internal Medicine
DX: R60.0 Localized edema (principal)

== ENCOUNTER 2018-08-18 07:39 | Outpatient (CLI) | payer MEDICARE, OTHER ==
[2018-08-18 08:31] LABS: CHOL/HDL RATIO 2.8 (<4.4); CHOLESTEROL 205 mg/dL; HDL CHOLESTEROL 73 mg/dL; LDL CHOLESTEROL,CALCULATED 117 mg/dL; LDL/HDL RATIO 1.6 (<4.4); VLDL CHOLESTEROL 15 mg/dL
[2018-08-18 09:52] LABS: THYROID STIMULATING HORMONE 0.67 uIU/mL (0.34-5.60)
[2018-08-18 09:54] LABS: FREE T4 (FREE THYROXINE) 1.23 ng/dL (0.58-1.64)
[2018-08-19 13:22] LABS: HEPATITIS C ANTIBODY NON-REACTIVE (NON-REACTIVE)
[2018-08-21 13:36] LABS: THYROGLOBULIN 0.9 ng/mL
== END 2018-08-18 07:40 | disposition home or self-care (01) ==
LOC: LAB 07:39
PROVIDERS: ATTEND Internal Medicine
DX: Z13.6 Encounter for screening for cardiovascular disorders (principal); E03.9 Hypothyroidism, unspecified; Z85.850 Personal history of malignant neoplasm of thyroid
CPT/HCPCS: 36415; 80061; 82306; 83721; 83735; 84432; 84439; 84443; 84481; 86800; 86803

== ENCOUNTER 2020-01-10 10:19 | Outpatient (CLI) | payer MEDICARE, OTHER ==
[2020-01-10 10:44] LABS: BASOPHILS % (AUTO) 0.6 %; EOSINOPHILS # (AUTO) 0.1 10^3/uL (0.0-0.7); EOSINOPHILS % (AUTO) 1.3 %; HGB - HEMOGLOBIN 15.7 g/dL (12.0-16.0); LYMPHOCYTES # (AUTO) 1.2 10^3/uL (1.5-3.5); LYMPHOCYTES % (AUTO) 16.5 %; MEAN CORPUSCULAR HEMOGLOBIN 31.3 pg (27.0-31.0); MEAN CORPUSCULAR HGB CONC 32.8 g/dL (32.0-36.0); MEAN CORPUSCULAR VOLUME 95.2 fL (81.0-99.0); MEAN PLATELET VOLUME 9.4 fL (7.9-10.8); MONOCYTES # (AUTO) 0.7 10^3/uL (0.0-1.0); MONOCYTES % (AUTO) 9.8 %; NEUTROPHILS # (AUTO) 5.1 10^3/uL (1.5-6.6); NEUTROPHILS % (AUTO) 71.5 %; PLT - PLATELET COUNT 177 10^3/uL (130-450); RED BLOOD COUNT 5.02 10^6/uL (4.20-5.40); RED CELL DISTRIBUTION WIDTH 13.2 % (12.0-15.0); WHITE BLOOD COUNT 7.2 x10^3/uL (4.8-10.8)
[2020-01-10 11:06] LABS: ALBUMIN 4.2 g/dL (3.2-5.5); ALBUMIN/GLOBULIN RATIO 1.5 (1.0-2.2); ALKALINE PHOSPHATASE 61 IU/L (42-121); ALT ALANINE AMINOTRANSFERASE 32 IU/L (10-60); AST ASPARTATE AMINOTRANSFERASE 36 IU/L (10-42); BILIRUBIN,TOTAL 1.8 mg/dL (0.2-1.0); BUN - BLOOD UREA NITROGEN 14 mg/dL (6-20); CALCIUM 8.8 mg/dL (8.5-10.3); CARBON DIOXIDE - CO2 25 mmol/L (21-32); CHLORIDE 103 mmol/L (101-111); CHOL/HDL RATIO 3.2 (<4.4); CHOLESTEROL 175 mg/dL; CREATININE 0.8 mg/dL (0.4-1.0); GFR - MDRD 71 (>89); GLUCOSE 100 mg/dL (70-100); HDL CHOLESTEROL 55 mg/dL; LDL CHOLESTEROL,CALCULATED 101 mg/dL; LDL/HDL RATIO 1.8 (<4.4); SODIUM 137 mmol/L (135-145); VLDL CHOLESTEROL 19 mg/dL
== END 2020-01-10 10:20 | disposition home or self-care (01) ==
LOC: LAB 10:19
PROVIDERS: ATTEND Naturopath
DX: I25.10 Atherosclerotic heart disease of native coronary artery without angina pectoris (principal); Z79.899 Other long term (current) drug therapy; C73 Malignant neoplasm of thyroid gland; E03.9 Hypothyroidism, unspecified; R06.02 Shortness of breath
CPT/HCPCS: 36415; 80053; 80061; 82728; 83721; 83921; 84443; 85025; 86800